=== PATIENT | female | born 1960 | race Caucasian/White ===

== ENCOUNTER 2017-10-20 08:25 | Emergency (ER) | payer MEDICAID ==
[~2017-10-20] VITALS: Ht 160 cm; Wt 94.1 kg
[~2017-10-20 08:25] MED LIST: ALBU8.5H4 IH; ASPI-920 PO; CARV3.1246 PO; CITA20TA11 PO; CLIN-79 PO; CLIN-80 PO; LORA10TA7 PO; METF500T4 PO; OLME40TA14 PO; OMEG300C2 PO; ONDA4TAB59 PO; [UNRECOGNIZED DRUG - CODE] PO
[2017-10-20] MEDS ORDERED: doxycycline hyclate 100mg tablet.DR PO STA (08:56)
[2017-10-20] MEDS ORDERED: DOXY-200 PO (09:00)
[2017-10-20] MEDS ORDERED: meclizine 12.5mg tablet PO ONE (09:00)
[2017-10-20] MEDS ORDERED: MECL-111 PO (09:00)
[2017-10-20 10:31] VITALS: BP 178/87
== END 2017-10-20 10:32 | disposition home or self-care (01) ==
LOC: ER 08:25
DX: H60.91 Unspecified otitis externa, right ear (principal); I10 Essential (primary) hypertension; K21.9 Gastro-esophageal reflux disease without esophagitis; E11.9 Type 2 diabetes mellitus without complications; Z88.8 Allergy status to other drugs, medicaments and biological substances; Z88.1 Allergy status to other antibiotic agents; Z91.012 Allergy to eggs; Z79.82 Long term (current) use of aspirin; Z79.84 Long term (current) use of oral hypoglycemic drugs; Z79.899 Other long term (current) drug therapy
CPT/HCPCS: 99283; J8597

== ENCOUNTER 2019-08-06 00:57 | Emergency (ER) | payer MEDICAID ==
[~2019-08-06] VITALS: Ht 160 cm; Wt 99.5 kg
[~2019-08-06 00:57] MED LIST changes: -CITA20TA11 PO; +CITA20TA28 PO; -CLIN-79 PO; -CLIN-80 PO; +CLIN-90 PO; +CLIN150C8 PO; +MECL-111 PO; +METF-436 PO; -METF500T4 PO
[2019-08-06 00:59] VITALS: BP 209/95
[2019-08-06] MEDS ORDERED: clindamycin 150mg capsule PO ONE (01:45)
[2019-08-06] MEDS ORDERED: acetaminophen w/codeine (60MG) #4 tablet PO ONE (01:50)
[2019-08-06] MEDS ORDERED: acetaminophen w/codeine (30MG) #3 tablet PO ONE (01:50)
[2019-08-06] MEDS ORDERED: naproxen 500mg tablet PO ONE (01:50)
[2019-08-06] MEDS ORDERED: ACET-3067 PO (01:52)
[2019-08-06] MEDS ORDERED: NAPR-56 PO (01:52)
[2019-08-06] MEDS ORDERED: CLIN-90 PO (01:52)
== END 2019-08-06 02:06 | disposition home or self-care (01) ==
LOC: ER 00:58
DX: K04.7 Periapical abscess without sinus (principal); K02.9 Dental caries, unspecified; I10 Essential (primary) hypertension; K21.9 Gastro-esophageal reflux disease without esophagitis; E11.9 Type 2 diabetes mellitus without complications; F41.9 Anxiety disorder, unspecified; F32.9 Major depressive disorder, single episode, unspecified; Z88.1 Allergy status to other antibiotic agents; Z88.0 Allergy status to penicillin; Z91.012 Allergy to eggs; Z88.6 Allergy status to analgesic agent; Z79.899 Other long term (current) drug therapy; Z79.82 Long term (current) use of aspirin; Z79.2 Long term (current) use of antibiotics; Z79.1 Long term (current) use of non-steroidal anti-inflammatories (NSAID); Z87.19 Personal history of other diseases of the digestive system
CPT/HCPCS: 99284

== ENCOUNTER 2020-06-08 21:45 | Inpatient (IN) | payer MEDICAID ==
[~2020-06-08] VITALS: Ht 160 cm; Wt 97.7 kg
[~2020-06-08 21:45] MED LIST changes: -CLIN-90 PO; +CLIN-97 PO; -MECL-111 PO; +MECL-159 PO
[2020-06-08] MEDS ORDERED: meclizine 12.5mg tablet PO ONE (23:00)
[2020-06-08] MEDS ORDERED: diazepam inj 5 MG/ML inj. IV ONE (23:00)
[2020-06-08] MEDS ORDERED: normal saline 1000ML IV soln IVB ONE (23:00)
[2020-06-08] MEDS ORDERED: ondansetron/PF 4mg/2ml inj IV ONE (23:00)
[2020-06-08 23:49] LABS: BASOPHILS % (AUTO) 0.5 % (0-1); EOSINOPHILS # (AUTO) 0.2 X10'3 (0-0.9); EOSINOPHILS % (AUTO) 1.9 % (0-6); HEMATOCRIT 39.9 % (35.0-45.0); HEMOGLOBIN 13.2 g/dl (12.0-16.0); LYMPHOCYTES % (AUTO) 20.2 % (21-51); MEAN CORPUSCULAR HEMOGLOBIN 28.7 PG (27.0-31.0); MEAN CORPUSCULAR HGB CONC 33.1 g/dL (33.0-36.5); MEAN CORPUSCULAR VOLUME 86.8 FL (78-98); MEAN PLATELET VOLUME 8.1 FL (7.4-10.4); MONOCYTES # (AUTO) 0.5 X10'3 (0-0.9); MONOCYTES % (AUTO) 5.4 % (2-12); NEUTROPHILS # (AUTO) 7.1 X10'3 (1.8-7.7); PLATELET COUNT 280 X10'3 (140-440); RED CELL DISTRIBUTION WIDTH 14.5 % (11.5-14.5); WHITE BLOOD COUNT 9.8 X10'3 (4.5-11.0)
[2020-06-08 23:58] LABS: ALANINE AMINOTRANSFERASE 22 U/L (12-78); ALBUMIN 3.5 G/DL (3.4-5.0); ALBUMIN/GLOBULIN RATIO 0.9 (1.1-1.5); ALKALINE PHOSPHATASE 94 IU/L (46-116); ANION GAP 6 (8-16); ASPARTATE AMINO TRANSFERASE 18 U/L (10-37); BILIRUBIN,TOTAL 0.3 MG/DL (0.1-1.0); BLOOD UREA NITROGEN 15 MG/DL (7-18); BUN/CREATININE RATIO 14.9 (6.6-38.0); CALCIUM 8.7 MG/DL (8.5-10.1); CHLORIDE 103 MMOL/L (99-107); CREATININE 1.01 MG/DL (0.40-0.90); GLUCOSE 145 MG/DL (70-104); POTASSIUM 4.1 MMOL/L (3.5-5.1); SODIUM 138 MMOL/L (135-145); TOTAL CARBON DIOXIDE 29.3 MMOL/L (24-32); TOTAL PROTEIN 7.5 G/DL (6.4-8.2); eGFR 56 ML/MIN
[2020-06-09 00:01] LABS: TROPONIN I < 0.04 NG/ML (0.0-0.05)
--- NOTE | 2020-06-09 01:16 | NUR ---
per MD order sat patient up and asked her to open her eyes, patient states she still feels like the room is spinning, noticeable nystagmus.
[2020-06-09] MEDS ORDERED: nitroGLYCERIN 0.2mg/hour patch TD ONE (01:25)
--- NOTE | 2020-06-09 02:54 | NUR ---
pt sat on edge of bed and then stood. Pt was dizzy and stated she had to keep her eyes closed or she her dizziness was worse. Pt then began vomiting. Pt transferred into a wheel chair and was taken to the restroom. Pt was able to transfer with one person assistance
[2020-06-09] MEDS ORDERED: metoclopramide 5 mg/ml inj IV ONE (03:15)
[2020-06-09] MEDS ORDERED: HYDROcodone/acetaminophen 10/325mg tab PO PRN (03:40)
[2020-06-09] MEDS ORDERED: acetaminophen 325mg tablet PO PRN ×2 (03:40)
[2020-06-09] MEDS ORDERED: magnesium hydroxide 30ml (MOM) UD suspension PO PRN (03:40)
[2020-06-09] MEDS ORDERED: mag hydrox/Alum hydrox/simeth 30ml oral suspension PO PRN (03:40)
[2020-06-09] MEDS ORDERED: HYDROcodone/acetaminophen 5mg/325mg tablet PO PRN (03:40)
[2020-06-09] MEDS ORDERED: metoclopramide 5 mg/ml inj IV PRN (03:40)
[2020-06-09] MEDS ORDERED: ondansetron/PF 4mg/2ml inj IV PRN (03:40)
[2020-06-09] MEDS ORDERED: morphine 2 MG/ML inj. syringe IV PRN ×2 (03:40)
[2020-06-09] MEDS ORDERED: LOSA25TA96 PO (07:11)
[2020-06-09] MEDS: enoxaparin 40mg/0.4ml syringe SUBCUT SCH (08:00)
[2020-06-09] MEDS: meclizine 12.5mg tablet PO PRN ×2 (08:42→16:41)
[2020-06-09 10:00] VITALS: BP 150/81
[2020-06-09] MEDS ORDERED: albuterol 2.5 MG/3 ML nebule NEB PRN (11:10)
[2020-06-09] MEDS: losartan 25mg tablet PO SCH (13:36)
[2020-06-09] MEDS: carVEDilol 3.125mg tablet PO SCH ×2 (13:37→19:58)
[2020-06-09] MEDS ORDERED: glucagon, human recombinant 1mg kit SUBCUT PRN (17:10)
[2020-06-09] MEDS ORDERED: dextrose 50%-water 50ml dispensing syringe IV PRN ×2 (17:10)
[2020-06-09] MEDS ORDERED: dextrose ORAL solution 15 GM/59 ML bottle PO PRN ×2 (17:10)
[2020-06-09] MEDS ORDERED: MESSAGE TO PHARMACY PO ONE (17:10)
[2020-06-09] MEDS ORDERED: insulin Lispro (HumaLOG) vial - multi-dose SQ SCH (17:10)
[2020-06-09 18:00] VITALS: BP 158/84
--- NOTE | 2020-06-09 18:42 | NUR ---
Problems reprioritized. Patient report given, questions answered & plan of care reviewed with
[2020-06-09] MEDS ORDERED: insulin glargine (Lantus) pen - multi-dose SQ SCH (21:00)
[2020-06-09 22:00] VITALS: BP 154/74
[2020-06-10 06:31] LABS: BASOPHILS % (AUTO) 0.4 % (0-1); EOSINOPHILS # (AUTO) 0.2 X10'3 (0-0.9); EOSINOPHILS % (AUTO) 1.8 % (0-6); LYMPHOCYTES # (AUTO) 2.6 X10'3 (1.1-4.8); LYMPHOCYTES % (AUTO) 23.4 % (21-51); MEAN CORPUSCULAR HEMOGLOBIN 29.4 PG (27.0-31.0); MEAN CORPUSCULAR HGB CONC 33.3 g/dL (33.0-36.5); MEAN CORPUSCULAR VOLUME 88.3 FL (78-98); MEAN PLATELET VOLUME 8.1 FL (7.4-10.4); MONOCYTES # (AUTO) 0.8 X10'3 (0-0.9); MONOCYTES % (AUTO) 7.2 % (2-12); NEUTROPHILS # (AUTO) 7.4 X10'3 (1.8-7.7); NEUTROPHILS % (AUTO) 67.2 % (42-75); PLATELET COUNT 284 X10'3 (140-440); RED BLOOD COUNT 4.42 X10'6 (4.20-5.60); RED CELL DISTRIBUTION WIDTH 14.2 % (11.5-14.5); WHITE BLOOD COUNT 10.9 X10'3 (4.5-11.0)
[2020-06-10 06:39] LABS: HEMOGLOBIN A1C 6.4 % (4.5-6.2)
--- NOTE | 2020-06-10 06:40 | NUR ---
Patient in room ORTHO 4010. I have received report from [facility] and had the opportunity to ask questions and assume patient care.
[2020-06-10 06:43] LABS: ALBUMIN 3.2 G/DL (3.4-5.0); ANION GAP 3 (8-16); BLOOD UREA NITROGEN 15 MG/DL (7-18); BUN/CREATININE RATIO 14.4 (6.6-38.0); CALCIUM 8.8 MG/DL (8.5-10.1); CHLORIDE 106 MMOL/L (99-107); CREATININE 1.04 MG/DL (0.40-0.90); GLUCOSE 110 MG/DL (70-104); POTASSIUM 3.8 MMOL/L (3.5-5.1); SODIUM 141 MMOL/L (135-145); TOTAL CARBON DIOXIDE 31.8 MMOL/L (24-32); eGFR 54 ML/MIN
[2020-06-10] MEDS: enoxaparin 40mg/0.4ml syringe SUBCUT SCH (08:00)
[2020-06-10] MEDS ORDERED: citalopram 20mg tablet PO SCH (08:00)
[2020-06-10] MEDS ORDERED: loratadine 10mg tablet PO SCH (08:00)
[2020-06-10] MEDS: carVEDilol 3.125mg tablet PO SCH (08:15)
[2020-06-10 08:16] VITALS: BP_SYST 121
[2020-06-10] MEDS: losartan 25mg tablet PO SCH (08:16)
--- NOTE | 2020-06-10 11:48 | NUR ---
DM Consult: Pt A1C less than 7 and not appropriate for DM ed at this time. Addendum: 06/10/20 at [address] Amended: Links added.
[2020-06-10] MEDS ORDERED: MECL-183 PO (13:05)
[2020-06-10] MEDS ORDERED: AMLO5TAB4 PO (13:05)
== END 2020-06-10 16:04 | disposition home or self-care (01) | DRG 111 ==
LOC: ER 21:46 → ED HOLD 06-09 03:36 → ORTHO 4S 06-09 07:05
PROVIDERS: ADMIT Internal Medicine; ATTEND Family Medicine
DX: R42 Dizziness and giddiness (principal); K57.90 Diverticulosis of intestine, part unspecified, without perforation or abscess without bleeding; I10 Essential (primary) hypertension; K21.9 Gastro-esophageal reflux disease without esophagitis; E11.9 Type 2 diabetes mellitus without complications; F41.9 Anxiety disorder, unspecified; F32.9 Major depressive disorder, single episode, unspecified; R11.2 Nausea with vomiting, unspecified; Z88.5 Allergy status to narcotic agent; Z88.0 Allergy status to penicillin; Z91.012 Allergy to eggs
CPT/HCPCS: 36415; 70450; 80048; 80053; 82948; 83036; 83880; 84484; 85025; 93005; 94760; 96374; 96375; 97116; 97161; 97530; 99285; G0378; J1815; J2405; J2765; J3360; J7030; J8597

== ENCOUNTER 2024-10-12 01:06 | Emergency (ER) | payer MEDICARE, MEDICAID ==
[~2024-10-12] VITALS: Ht 160 cm; Wt 97.7 kg
[~2024-10-12 01:06] MED LIST changes: +AMLO5TAB4 PO; -ASPI-920 PO; -CLIN-97 PO; -CLIN150C8 PO; +LOSA-415 PO; -MECL-159 PO; +MECL-226 PO; -OLME40TA14 PO; -OMEG300C2 PO; -ONDA4TAB59 PO; -[UNRECOGNIZED DRUG - CODE] PO
[2024-10-12 01:25] VITALS: BP 154/76; PULSE 78
[2024-10-12] MEDS: ondansetron/PF 4mg/2ml inj IV ONE (01:33)
[2024-10-12] MEDS: loperamide 2mg capsule PO ONE (01:33)
[2024-10-12] MEDS: normal saline 1000ml 1,000 ML IV ONE (01:33)
[2024-10-12] MEDS: acetaminophen 1,000mg/100ml IV 100 ML IV ONE (01:33)
[2024-10-12 01:58] LABS: BASOPHILS % (AUTO) 0.2 % (0-1); EOSINOPHILS % (AUTO) 0 % (0-6); HEMATOCRIT 38.6 % (35.0-45.0); LYMPHOCYTES # (AUTO) 0.6 X10'3 (1.1-4.8); LYMPHOCYTES % (AUTO) 15.2 % (21-51); MEAN CORPUSCULAR HEMOGLOBIN 30.3 PG (27.0-31.0); MEAN CORPUSCULAR HGB CONC 33.6 g/dL (33.0-36.5); MEAN CORPUSCULAR VOLUME 90.1 FL (78-98); MEAN PLATELET VOLUME 8.3 FL (7.4-10.4); MONOCYTES # (AUTO) 0.4 X10'3 (0-0.9); NEUTROPHILS % (AUTO) 75.6 % (42-75); PLATELET COUNT 189 X10'3 (140-440); RED BLOOD COUNT 4.29 X10'6 (4.20-5.60); RED CELL DISTRIBUTION WIDTH 14.6 % (11.5-14.5)
[2024-10-12] MEDS: normal saline 1000ML IV soln IV ONE (02:00)
[2024-10-12 02:10] LABS: ALBUMIN 3.3 G/DL (3.4-5.0); ANION GAP 7 (8-16); BLOOD UREA NITROGEN 19 MG/DL (7-18); BUN/CREATININE RATIO 18.6 (10.0-20.0); CALCIUM 8.7 MG/DL (8.5-10.1); CHLORIDE 102 MMOL/L (99-107); CREATININE 1.02 MG/DL (0.40-0.90); GLUCOSE 109 MG/DL (70-104); MAGNESIUM 2.1 MG/DL (1.5-2.4); POTASSIUM 3.9 MMOL/L (3.5-5.1); SODIUM 136 MMOL/L (135-145); TOTAL CARBON DIOXIDE 27.2 MMOL/L (24-32); eCRCL 45 ML/MIN; eGFR 54 ML/MIN
[2024-10-12 03:07] LABS: BILIRUBIN,URINE NEGATIVE (Neg); CLARITY,URINE CLEAR (Clear); COLOR,URINE YELLOW (Yellow); GLUCOSE, URINE NEGATIVE (Neg); KETONES,URINE TRACE mg/dl (Neg); LEUKOCYTE ESTERASE ,URINE NEGATIVE (Neg); NITRITES, URINE NEGATIVE (Neg); OCCULT BLOOD,URINE LARGE (Neg); PROTEIN,URINE 100 mg/dl (Neg); UROBILINOGEN,URINE 0.2 E.U/dL (0.2-1.0)
[2024-10-12 03:11] LABS: UA COLLECTION TYPE CLN CATCH MIDSTREAM
[2024-10-12 03:13] LABS: BACTERIA,URINE 3+ /HPF (Neg); FINE GRANULAR CAST 0-3 /LPF (NEGATIVE); SQUAMOUS EPITHELIAL CELL,UR MODERATE /LPF (FEW); WBC,URINE 0-4 /HPF (0-4)
[2024-10-12] MEDS ORDERED: LEVO-65 PO (04:00)
[2024-10-12] MEDS ORDERED: ONDA-245 PO (04:00)
[2024-10-12 04:07] VITALS: RESP 16; TEMP 99.6; O2SAT 98
[2024-10-12] MEDS: levoFLOXACIN 250mg tablet PO ONE (04:12)
[2024-10-14] MEDS ORDERED: SIMV-42 PO (07:43)
[2024-10-14] MEDS ORDERED: CARV-50 PO (07:43)
[2024-10-14] MEDS ORDERED: BUPR150T8 PO (07:43)
[2024-10-14] MEDS ORDERED: CHOL100017 PO (07:43)
[2024-10-14] MEDS ORDERED: LAMO100T40 PO (07:43)
[2024-10-14] MEDS ORDERED: NAPR-56 PO (07:53)
[2024-10-16] MEDS ORDERED: CITA20TA16 PO (10:31)
[2024-10-17] MEDS ORDERED: GUAI600T45 PO (10:44)
[2024-10-17] MEDS ORDERED: [UNRECOGNIZED DRUG - OTHER] PO (10:44)
[2024-10-17] MEDS ORDERED: LEVO750T68 PO (10:44)
[2024-10-17] MEDS ORDERED: PANT40TA54 PO (10:44)
== END 2024-10-12 04:15 | disposition home or self-care (01) ==
LOC: ER 01:07
DX: B34.9 Viral infection, unspecified (principal); N39.0 Urinary tract infection, site not specified; E11.9 Type 2 diabetes mellitus without complications; I10 Essential (primary) hypertension; K21.9 Gastro-esophageal reflux disease without esophagitis; F32.A Depression, unspecified; F41.9 Anxiety disorder, unspecified; Z88.1 Allergy status to other antibiotic agents; Z88.0 Allergy status to penicillin; Z88.5 Allergy status to narcotic agent; Z79.899 Other long term (current) drug therapy; Z79.84 Long term (current) use of oral hypoglycemic drugs; W01.0XXA Fall on same level from slipping, tripping and stumbling without subsequent striking against object, initial encounter; Y93.89 Activity, other specified; Y92.89 Other specified places as the place of occurrence of the external cause; Y99.8 Other external cause status
CPT/HCPCS: 96361; 96365; 96375; 99285; J0131; J2405; J7030; 36415; 71045; 73610; 80048; 81001; 83735; 84145; 84484; 85025; 93005